=== PATIENT | female | born 1960 | race Asian ===

== ENCOUNTER → 2018-05-22 | Outpatient (CLI) | payer BC ==
--- NOTE | 2018-05-22 21:24 | XCELERA REPORT ---
[address] [address] Transthoracic Echocardiogram Report Name: POP TREJO Age: 57 yrs Gender: Female : 1960 Patient Status: Preadmit Patient Location: [facility] Study Date: 05/22/2018 11:32 AM Height: 65 in Weight: 123 lb BSA: 1.6 m2 Reason For Study: MURMUR Ordering Physician: VIRA TINEO Performed By: Fannie Guerrero Interpretation Summary Small posterior pericardial effusion. Normal 3 cusps AV with no , only trace AR, with no LV enlargement, no enlarged Aortic root. Normal MV with no MS, no MVP, only mild MR with no LA enlargment. Mild mitral annular calcification. LV is normal thickness, normal LVEF 60% with no LV diastolic dysfunctiion, and no LV enlargement. No segmental regional wall motion abnormality. R heart is normal, and only mild MR with no pulm hypertension RVSP 29 mm Hg, RAP [address] physiological, No ASD. Heart murmur is non-valvular. MMode/2D Measurements & Calculations RVDd: 2.8 cm LVIDd: 4.5 cm FS: 36.8 % Ao root diam: 2.6 cm IVSd: 0.77 cm LVIDs: 2.8 cm EDV(Teich): 92.0 ml LVPWd: 0.79 cm ESV(Teich): 30.5 ml Ao root area: 5.3 cm2 LA dimension: 3.4 cm EF(Teich): 66.8 % Doppler Measurements & Calculations MV E max aracelis: MV P1/2t max aracelis: Ao V2 max: LV V1 max P.1 cm/sec 83.7 cm/sec 155.1 cm/sec 4.8 mmHg MV A max aracelis: MV P1/2t: 68.0 msec Ao max PG: LV V1 max: 55.5 cm/sec MVA(P1/2t): 3.2 cm2 9.6 mmHg 110.0 cm/sec MV E/A: 1.5 MV dec slope: 360.6 cm/sec2 MV dec time: 0.22 sec PA V2 max: PI end-d aracelis: TR max aracelis: MV P1/2t-pr_phl: 95.8 cm/sec 99.9 cm/sec 252.5 cm/sec 68.0 msec PA max PG: TR max P.7 mmHg 25.5 mmHg I WMSI = 1.00 % Normal = 100 Segments Size X - Cannot 2 - 4 - 1-2 small Interpret 1 - Normal Hypokinetic 3 - AkineticDyskinetic 3-5 moderate 5 - 6-14 large Aneurysmal 15-16 diffuse : VIRA TINEO Andre
== END ==
LOC: SP 11:00
PROVIDERS: ATTEND Family Medicine
DX: R01.1 Cardiac murmur, unspecified (principal)
CPT/HCPCS: 93306